=== PATIENT | female | born 1975 | race Caucasian/White ===

== ENCOUNTER 2016-07-04 13:25 | Emergency (ER) | payer OTHER ==
--- NOTE | 2016-07-04 14:29 | DIAGNOSTIC IMAGING REPORT ---
PROCEDURE: XR KNEE 4 VIEWS - LEFT INDICATION: TRAUMA/INJURY TECHNIQUE: Four views of the left knee. COMPARISON: None. FINDINGS: Normal mineralization. No fractures. Moderate decreased joint space loss of the medial compartment with small spurs. Mild spurring in the lateral and patellofemoral compartment. Enthesopathic change of the anterior superior and inferior patella. Possible moderate sized joint effusion. No chondrocalcinosis. No foreign body. IMPRESSION: 1. Moderate sized joint effusion suspected. This may be sign of internal derangement. Routine MRI of the knee if pain continues. 2. Mild to moderate tricompartment osteoarthritic changes, most extensive in the medial compartment.
--- NOTE | 2016-07-04 14:31 | ED CLINICAL REPORT ---
Clinical Report - Physicians/Mid Levels [facility] [address] [place] [address] 07/04/2016 13:27 Patient: DEISY FRIEDMAN Time Seen: 13:47; initial patient contact, initial documentation, patient care assumed. Arrived- By private vehicle. Historian- patient. HISTORY OF PRESENT ILLNESS Chief Complaint: Injury to left knee. The injury happened about 1 weeks ago. Occurred at home. ( walking and moving stuff, and hears sound come from knee and instant pain). Patient is experiencing severe pain. Patient denies injury to the head or neck. No other injury. (says she never had injury to it prior, but has bad knees due to her size). REVIEW OF SYSTEMS The patient has had weakness. No tingling, numbness, suspected foreign body or skin laceration. All systems otherwise negative, except as recorded above. PAST HISTORY See nurses notes. ( PROBLEMS: Elevated Cholesterol. High blood pressure . --13:41 Derek Da Silva, R.N. ADDITIONAL SURGERIES: Bilateral Tubal Ligation. Hysterectomy. --13:41 Derek Da Silva, R.N.). SOCIAL HISTORY Former smoker. Occasional alcohol use. History of occasional drug use: marijuana. No recent travel. Is a local resident. FAMILY HISTORY No significant family medical history. ADDITIONAL NOTES The nursing notes have been reviewed with agreement regarding the chief complaint, HPI, ROS, PMH and patient medications and allergies. PHYSICAL EXAM Vital Signs: 07/04/2016 13:37 BP: 133/85. HR: 81. RR: 18. O2 saturation: 98%. Temp: 98.4 F. Have been reviewed as normal and appear to be correct. Appearance: Alert. Oriented X3. No acute distress. Head: Head atraumatic. Eyes: Pupils equal, round and reactive to light. Eyes normal inspection. Respiratory: No respiratory distress. Abdomen: Severely obese. Skin: Skin intact. Skin warm and dry. Normal skin color. Normal skin turgor. Extremities: Left knee: mild tenderness located in the medial joint line and medial collateral ligament. Limited ROM secondary to pain (diminished flexion). Neurovascular intact distally. (can flex almost 100% of the way before too much pain). No ligamentous laxity present. No joint effusion. No erythema, swelling, laceration, abrasion or ecchymosis. No puncture wound, foreign body or deformity. Lower extremity exam otherwise negative. Extremities otherwise negative. Gait: Abnormal gait. Gait not tested due to pain. Neuro, Vascular and Tendons: Vascular status intact. Sensation intact. Motor intact. Tendon function intact. Neuro: Oriented X 3. No motor deficit. No sensory deficit. Note: isolated injury to knee. LABS, X-RAYS, AND EKG X-Rays: Left knee. The X-rays were interpreted by the radiologist and contemporaneously by me and discussed with the radiologist. Interpretation time: 14:27. PROGRESS AND PROCEDURES Patient counseled in person regarding the patient's stable condition, test results and diagnosis. 14:27. Differential Diagnosis: I considered stress fracture, bone contusion, rheumatoid arthritis, sprain, hyperextension, meniscus tear, anterior cruciate ligament tear, ligament tear, soft tissue injury, soft tissue hematoma, myositis, fasciitis, tendonitis, bursitis and Taylor's cyst as a possible cause of lower extremity pain in this patient. This is a partial list of diagnoses considered. Above considerations are based on history, physical exam, reassessment and X-Ray data. Differential diagnosis was discussed with patient. Disposition: Discharged home in good and improved condition (14:31). Condition: good and stable. CLINICAL IMPRESSION Tear of the left medial meniscus. INSTRUCTIONS Warnings: COMPLICATIONS: Complications from this condition include: possible injury to a ligament (for possible MRI, as discussed). It is important to follow up with a physician for further evaluation and treatment. GENERAL WARNINGS: Return or contact your physician immediately if your condition worsens or changes unexpectedly, if not improving as expected, or if other problems arise. Specifically return if problem worsens. Prescription Medications: [place] 5 mg / 325 mg tablets: take 1 to 2 orally every 6 hours as needed for pain. Dispense fifteen (15). No refills. Substitution is permissible. Motrin 800 mg tablets: take 1 tablet orally every 8 hours as needed for pain. Dispense thirty (30). No refills. Substitution is permissible. Understanding of the discharge instructions verbalized by patient. Follow-up with: [facility], , [address], , [place], [address]; Tristan Joseph M.D., Ortho, , [address], , [place], [address]; Chris Graff M.D., Ortho, , [address], , [place], [address]; Jesus Manuel Alfonso MD, Orthopedic Surgeon, , [address], , [place], [address]; Norberto Peter MD, Orthopedic Surgeon, , [address] , [place], [address] Follow up in about one week as needed. Call for an appointment. Summary of care provided to patient. (Electronically signed by Celi Enrique A.R.N.P. 07/04/2016 16:01)
--- NOTE | 2016-07-04 14:31 | ED ORDER SUMMARY ---
..... Patient: DEISY FRIEDMAN OrderSheet [facility] VisitID: [id number] [place] [address] 40y, F Registration Date/Time: 07/04/2016 ORDER SHEET Weight: 177.8 kg (stated) Allergies: No Known Drug Allergy GENERAL ORDERS: Knee 4V Left Urgent (13:53 07/04/2016 HBivens A.R.N.P.) (Ack 13:54 MSyann) (14:38 JSanders R.N.) Abhinav Wrap (14:28 07/04/2016 HBivens A.R.N.P.) (14:46 JSanders R.N.) MEDICATION ORDERS: Hydrocodone-APAP PO 5/325 mg (NOW, HIGH ALERT MEDICATION) (14:27 07/04/2016 HBivens A.R.N.P.) (14:38 JSanders R.N.) IV FLUIDS: ORDER SHEET NOTES: [Electronically signed by Jessy Duarte R.N. (15:34 07/04/2016)] [Electronically signed by Celi EnriqueR.N.P. (16:01 07/04/2016)] [Electronically locked/signed by Jessy Duarte R.N. (15:34 07/04/2016)]
--- NOTE | 2016-07-04 14:31 | ED CLINICAL REPORT ---
Clinical Report - Physicians/Mid Levels [facility] [address] [place] [address] 07/04/2016 13:27 Patient: DEISY FRIEDMAN Time Seen: 13:47; initial patient contact, initial documentation, patient care assumed. Arrived- By private vehicle. Historian- patient. HISTORY OF PRESENT ILLNESS Chief Complaint: Injury to left knee. The injury happened about 1 weeks ago. Occurred at home. ( walking and moving stuff, and hears sound come from knee and instant pain). Patient is experiencing severe pain. Patient denies injury to the head or neck. No other injury. (says she never had injury to it prior, but has bad knees due to her size). REVIEW OF SYSTEMS The patient has had weakness. No tingling, numbness, suspected foreign body or skin laceration. All systems otherwise negative, except as recorded above. PAST HISTORY See nurses notes. ( PROBLEMS: Elevated Cholesterol. High blood pressure . --13:41 Derek Da Silva, R.N. ADDITIONAL SURGERIES: Bilateral Tubal Ligation. Hysterectomy. --13:41 Derek Da Silva, R.N.). SOCIAL HISTORY Former smoker. Occasional alcohol use. History of occasional drug use: marijuana. No recent travel. Is a local resident. FAMILY HISTORY No significant family medical history. ADDITIONAL NOTES The nursing notes have been reviewed with agreement regarding the chief complaint, HPI, ROS, PMH and patient medications and allergies. PHYSICAL EXAM Vital Signs: 07/04/2016 13:37 BP: 133/85. HR: 81. RR: 18. O2 saturation: 98%. Temp: 98.4 F. Have been reviewed as normal and appear to be correct. Appearance: Alert. Oriented X3. No acute distress. Head: Head atraumatic. Eyes: Pupils equal, round and reactive to light. Eyes normal inspection. Respiratory: No respiratory distress. Abdomen: Severely obese. Skin: Skin intact. Skin warm and dry. Normal skin color. Normal skin turgor. Extremities: Left knee: mild tenderness located in the medial joint line and medial collateral ligament. Limited ROM secondary to pain (diminished flexion). Neurovascular intact distally. (can flex almost 100% of the way before too much pain). No ligamentous laxity present. No joint effusion. No erythema, swelling, laceration, abrasion or ecchymosis. No puncture wound, foreign body or deformity. Lower extremity exam otherwise negative. Extremities otherwise negative. Gait: Abnormal gait. Gait not tested due to pain. Neuro, Vascular and Tendons: Vascular status intact. Sensation intact. Motor intact. Tendon function intact. Neuro: Oriented X 3. No motor deficit. No sensory deficit. Note: isolated injury to knee. LABS, X-RAYS, AND EKG X-Rays: Left knee. The X-rays were interpreted by the radiologist and contemporaneously by me and discussed with the radiologist. Interpretation time: 14:27. PROGRESS AND PROCEDURES Patient counseled in person regarding the patient's stable condition, test results and diagnosis. 14:27. Differential Diagnosis: I considered stress fracture, bone contusion, rheumatoid arthritis, sprain, hyperextension, meniscus tear, anterior cruciate ligament tear, ligament tear, soft tissue injury, soft tissue hematoma, myositis, fasciitis, tendonitis, bursitis and Taylor's cyst as a possible cause of lower extremity pain in this patient. This is a partial list of diagnoses considered. Above considerations are based on history, physical exam, reassessment and X-Ray data. Differential diagnosis was discussed with patient. Disposition: Discharged home in good and improved condition (14:31). Condition: good and stable. CLINICAL IMPRESSION Tear of the left medial meniscus. INSTRUCTIONS Warnings: COMPLICATIONS: Complications from this condition include: possible injury to a ligament (for possible MRI, as discussed). It is important to follow up with a physician for further evaluation and treatment. GENERAL WARNINGS: Return or contact your physician immediately if your condition worsens or changes unexpectedly, if not improving as expected, or if other problems arise. Specifically return if problem worsens. Prescription Medications: [place] 5 mg / 325 mg tablets: take 1 to 2 orally every 6 hours as needed for pain. Dispense fifteen (15). No refills. Substitution is permissible. Motrin 800 mg tablets: take 1 tablet orally every 8 hours as needed for pain. Dispense thirty (30). No refills. Substitution is permissible. Understanding of the discharge instructions verbalized by patient. Follow-up with: [facility], , [address], , [place], [address]; Tristan Joseph M.D., Ortho, , [address], , [place], [address]; Chris Graff M.D., Ortho, , [address], , [place], [address]; Jesus Manuel Alfonso MD, Orthopedic Surgeon, , [address], , [place], [address]; Norberto Peter MD, Orthopedic Surgeon, , [address] , [place], [address] Follow up in about one week as needed. Call for an appointment. Summary of care provided to patient. (Electronically signed by Celi Enrique A.R.N.P. 07/04/2016 16:01)
--- NOTE | 2016-07-04 14:31 | ED NURSING NOTES ---
Clinical Report - Nurses [facility] [address] [place] [address] 07/04/2016 13:27 [id number] TRI[facility] Triage time 13:37 Jul 04 2016. Acuity: LEVEL 3. Chief Complaint: INJURY TO LEFT KNEE. STALIN COMA SCORE: Stalin Coma Scale: 15- eyes open spontaneously (4); best verbal response- oriented x 4 (5); best motor response- obeys commands (6). --13:42 Derek Da Silva R.N. 13:37 07/04/16. BP: 133/85. HR: 81. RR: 18. O2 saturation: 98%. Temp: 98.4 F. Pain level now 10/10. --13:42 Derek Da Silva R.N. Weight: 177.8 kg stated. Height/Length: 70 inches Per Patient. BMI: 56.2. --13:41 Derek Da Silva R.N. Medications Ibuprofen Oral. --13:39 Derek Da Silva R.N. Sertraline HCl Oral. --13:39 Derek Da Silva R.N. Lisinopril Oral. --13:39 Derek Da Silva R.N. Atenolol Oral. --13:39 Derek Da Silva R.N. Diclofenac Oral. --13:40 Derek Da Silva R.N. Allergies No Known Drug Allergy. --13:40 Derek Da Silva R.N. History Arrived by private vehicle. Historian: patient. Accompanied by family. This occurred (thursday). Occurred at home. ( Patient was moving on thursday and was up the stairs heard a sound a tear or pop but has been in severe pain since.). She has had trouble walking and weakness. No numbness, tingling, neck pain or back pain. 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 Took ibuprofen. PAST MEDICAL HX: Hypertension. Tetanus status: up-to-date. Immunizations: up-to-date. Denies current . SOCIAL HX: Smoker- current status unknown. Occasional alcohol use. History of drug use: marijuana. --13:42 Derek Da Silva R.N. PROBLEMS: Elevated Cholesterol. High blood pressure . --13:41 Derek Da Silva R.N. ADDITIONAL SURGERIES: Bilateral Tubal Ligation. Hysterectomy. --13:41 Derek Da Silva R.N. Interventions ID band on patient. --13:42 Derek Da Silva R.N. PHYSICAL ASSESSMENT Ambulatory to room. GENERAL / NEURO / PSYCH: Oriented X 4. Appears in pain. EXTREMITIES: Capillary refill is less than 2 seconds in the extremities. Extremity pulses are within normal limits. Extremities exhibit normal ROM. Pain with weight bearing. Neuro-vascular status intact to the extremity. Left knee: tenderness. SKIN: Skin intact. Skin is warm and dry. --13:43 Derek Da Silva R.N. NURSING PROGRESS NOTES Cold pack applied to the left patella. Patient gowned. Reassurance given. Call light placed in reach. Side rails up x 1. Bed placed in lowest position. Brakes of bed on. --13:43 Derek Da Silva R.N. 14:38 07/04/2016 Hydrocodone-APAP (Hydrocodone-Acetaminophen) PO 5/325 mg Tablets 1 tab given. Allergies verified, confirmed 5 rights and sedative warning given to the patient. --14:38 Jessy Duarte R.N. DISPOSITION / DISCHARGE 15:26 07/04/2016 Hydrocodone-APAP PO Response: no adverse reaction pain is improving. Symptoms have improved the patient feels better. --15:26 Jessy Duarte R.N. Condition at departure: improved. No learning barriers present. Discharge instructions provided and reviewed with the patient. Reviewed medication(s) side effects, precautions and dosing information. Prescription(s) given to the patient. Reviewed instructions (sowmya wrap). Patient verbalized understanding. Written instructions provided in Georgian. The patient was discharged by the nurse practitioner. She was discharged home and accompanied by family. She left the Emergency Department in a wheelchair and via private vehicle. Family member driving. ( Patient has no further questions). --15:28 Jessy Duarte R.N. 15:23 07/04/16. BP: 139/95. HR: 86. RR: 18. O2 saturation: 94% on room air. Temp: 97.7 F (oral). Pain level now: 10/06. --15:28 Jessy Duarte R.N. Departure time: 15:33 Jul 04 2016. --15:33 Jessy Duarte R.N. Locked/Released at 07/04/2016 15:34 by Jessy Duarte R.N.
--- NOTE | 2016-07-04 14:31 | ED ORDER SUMMARY ---
..... Patient: DEISY FRIEDMAN OrderSheet [facility] VisitID: [id number] [place] [address] 40y, F Registration Date/Time: 07/04/2016 ORDER SHEET Weight: 177.8 kg (stated) Allergies: No Known Drug Allergy GENERAL ORDERS: Knee 4V Left Urgent (13:53 07/04/2016 HBivens A.R.N.P.) (Ack 13:54 NDyann) (14:38 JSanders R.N.) Abhinav Wrap (14:28 07/04/2016 HBivens A.R.N.P.) (14:46 JSanders R.N.) MEDICATION ORDERS: Hydrocodone-APAP PO 5/325 mg (NOW, HIGH ALERT MEDICATION) (14:27 07/04/2016 HBivens A.R.N.P.) (14:38 JSanders R.N.) IV FLUIDS: ORDER SHEET NOTES: [Electronically signed by Jessy Duarte R.N. (15:34 07/04/2016)] [Electronically signed by Celi EnriqueR.N.P. (16:01 07/04/2016)] [Electronically locked/signed by Jessy Duarte R.N. (15:34 07/04/2016)]
--- NOTE | 2016-07-04 14:31 | ED NURSING NOTES ---
Clinical Report - Nurses [facility] [address] [place] [address] 07/04/2016 13:27 [id number] TRI[facility] Triage time 13:37 Jul 04 2016. Acuity: LEVEL 3. Chief Complaint: INJURY TO LEFT KNEE. STALIN COMA SCORE: Stalin Coma Scale: 15- eyes open spontaneously (4); best verbal response- oriented x 4 (5); best motor response- obeys commands (6). --13:42 Derek Da Silva R.N. 13:37 07/04/16. BP: 133/85. HR: 81. RR: 18. O2 saturation: 98%. Temp: 98.4 F. Pain level now 10/10. --13:42 Derek Da Silva R.N. Weight: 177.8 kg stated. Height/Length: 70 inches Per Patient. BMI: 56.2. --13:41 Derek Da Silva R.N. Medications Ibuprofen Oral. --13:39 Derek Da Silva R.N. Sertraline HCl Oral. --13:39 Derek Da Silva R.N. Lisinopril Oral. --13:39 Derek Da Silva R.N. Atenolol Oral. --13:39 Derek Da Silva R.N. Diclofenac Oral. --13:40 Derek Da Silva R.N. Allergies No Known Drug Allergy. --13:40 Derek Da Silva R.N. History Arrived by private vehicle. Historian: patient. Accompanied by family. This occurred (thursday). Occurred at home. ( Patient was moving on thursday and was up the stairs heard a sound a tear or pop but has been in severe pain since.). She has had trouble walking and weakness. No numbness, tingling, neck pain or back pain. 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 Took ibuprofen. PAST MEDICAL HX: Hypertension. Tetanus status: up-to-date. Immunizations: up-to-date. Denies current . SOCIAL HX: Smoker- current status unknown. Occasional alcohol use. History of drug use: marijuana. --13:42 Derek Da Silva R.N. PROBLEMS: Elevated Cholesterol. High blood pressure . --13:41 Derek Da Silva R.N. ADDITIONAL SURGERIES: Bilateral Tubal Ligation. Hysterectomy. --13:41 Derek Da Silva R.N. Interventions ID band on patient. --13:42 Derek Da Silva R.N. PHYSICAL ASSESSMENT Ambulatory to room. GENERAL / NEURO / PSYCH: Oriented X 4. Appears in pain. EXTREMITIES: Capillary refill is less than 2 seconds in the extremities. Extremity pulses are within normal limits. Extremities exhibit normal ROM. Pain with weight bearing. Neuro-vascular status intact to the extremity. Left knee: tenderness. SKIN: Skin intact. Skin is warm and dry. --13:43 Derek Da Silva R.N. NURSING PROGRESS NOTES Cold pack applied to the left patella. Patient gowned. Reassurance given. Call light placed in reach. Side rails up x 1. Bed placed in lowest position. Brakes of bed on. --13:43 Derek Da Silva R.N. 14:38 07/04/2016 Hydrocodone-APAP (Hydrocodone-Acetaminophen) PO 5/325 mg Tablets 1 tab given. Allergies verified, confirmed 5 rights and sedative warning given to the patient. --14:38 Jessy Duarte R.N. DISPOSITION / DISCHARGE 15:26 07/04/2016 Hydrocodone-APAP PO Response: no adverse reaction pain is improving. Symptoms have improved the patient feels better. --15:26 Jessy Duarte R.N. Condition at departure: improved. No learning barriers present. Discharge instructions provided and reviewed with the patient. Reviewed medication(s) side effects, precautions and dosing information. Prescription(s) given to the patient. Reviewed instructions (sowmya wrap). Patient verbalized understanding. Written instructions provided in Turkmen. The patient was discharged by the nurse practitioner. She was discharged home and accompanied by family. She left the Emergency Department in a wheelchair and via private vehicle. Family member driving. ( Patient has no further questions). --15:28 Jessy Duarte R.N. 15:23 07/04/16. BP: 139/95. HR: 86. RR: 18. O2 saturation: 94% on room air. Temp: 97.7 F (oral). Pain level now: 10/06. --15:28 Jessy Duarte R.N. Departure time: 15:33 Jul 04 2016. --15:33 Jessy Duarte R.N. Locked/Released at 07/04/2016 15:34 by Jessy Duarte R.N.
--- NOTE | 2016-07-04 16:02 | ED MAR SUMMARY ---
..... Medication Administration Record [facility] [address] [place] [address] Patient: DEISY FRIEDMAN Visit ID: [id number] 40y, F Weight: 177.8 kg Height/Length: 70 in BMI: 56.2 ALLERGIES: No Known Drug Allergy Given 14:38 07/04/2016 Jessy Duarte R.N. Medication Administered: HYDROCODONE-APAP [PO] (HYDROCODONE-ACETAMINOPHEN), Dose: 1 tab 5/325 mg Tablets PO. Medication Ordered: Hydrocodone-APAP PO 5/325 mg (NOW, HIGH ALERT MEDICATION).
--- NOTE | 2016-07-04 16:02 | ED MED RECONCILIATION SUMMARY ---
Patient: DEISY FRIEDMAN Medication Reconciliation Report [facility] VisitID: [id number] [place] [address] 40y, F Registration Date/Time: 07/04/2016 Weight: 177.8 kg Height/Length: 70 in. BMI: 56.2 ALLERGIES: No Known Drug Allergy The patient's Home Medications are listed below: THE FOLLOWING MEDICATIONS NEED TO BE RECONCILED: Atenolol Oral Diclofenac Oral Ibuprofen Oral Lisinopril Oral Sertraline HCl Oral The source(s) of the original Home Medication information: Not obtained. The following Medications were given to the patient in the Emergency Department: Hydrocodone-APAP [PO] PO 1 tab, administered: 07/04/2016 2:38:00 PM The following Medications were prescribed to the patient: [place] 5 mg / 325 mg tablets: take 1 to 2 orally every 6 hours as needed for pain. Dispense fifteen (15). No refills. Substitution is permissible. -- Celi Enrique A.R.N.P. Motrin 800 mg tablets: take 1 tablet orally every 8 hours as needed for pain. Dispense thirty (30). No refills. Substitution is permissible. -- Celi Enrique A.R.N.P.
--- NOTE | 2016-07-04 16:02 | ED MED RECONCILIATION SUMMARY ---
Patient: DEISY FRIEDMAN Medication Reconciliation Report [facility] VisitID: [id number] [place] [address] 40y, F Registration Date/Time: 07/04/2016 Weight: 177.8 kg Height/Length: 70 in. BMI: 56.2 ALLERGIES: No Known Drug Allergy The patient's Home Medications are listed below: THE FOLLOWING MEDICATIONS NEED TO BE RECONCILED: Atenolol Oral Diclofenac Oral Ibuprofen Oral Lisinopril Oral Sertraline HCl Oral The source(s) of the original Home Medication information: Not obtained. The following Medications were given to the patient in the Emergency Department: Hydrocodone-APAP [PO] PO 1 tab, administered: 07/04/2016 2:38:00 PM The following Medications were prescribed to the patient: [place] 5 mg / 325 mg tablets: take 1 to 2 orally every 6 hours as needed for pain. Dispense fifteen (15). No refills. Substitution is permissible. -- Celi Enrique A.R.N.P. Motrin 800 mg tablets: take 1 tablet orally every 8 hours as needed for pain. Dispense thirty (30). No refills. Substitution is permissible. -- Celi Enrique A.R.N.P.
--- NOTE | 2016-07-04 16:02 | ED MAR SUMMARY ---
..... Medication Administration Record [facility] [address] [place] [address] Patient: DEISY FRIEDMAN Visit ID: [id number] 40y, F Weight: 177.8 kg Height/Length: 70 in BMI: 56.2 ALLERGIES: No Known Drug Allergy Given 14:38 07/04/2016 Jessy Duarte R.N. Medication Administered: HYDROCODONE-APAP [PO] (HYDROCODONE-ACETAMINOPHEN), Dose: 1 tab 5/325 mg Tablets PO. Medication Ordered: Hydrocodone-APAP PO 5/325 mg (NOW, HIGH ALERT MEDICATION).
--- NOTE | 2016-07-04 16:02 | ED DISCHARGE INSTRUCTIONS ---
Patient: DEISY FRIEDMAN General Instructions [facility] VisitID: [id number] [address], [place], [place] [id number] 40y, F Registration Date/Time: 07/04/2016 Tear of the left medial meniscus. INSTRUCTIONS Warnings: COMPLICATIONS: Complications from this condition include: possible injury to a ligament (for possible MRI, as discussed). It is important to follow up with a physician for further evaluation and treatment. GENERAL WARNINGS: Return or contact your physician immediately if your condition worsens or changes unexpectedly, if not improving as expected, or if other problems arise. Specifically return if problem worsens. Prescription Medications: Sigourney 5 mg / 325 mg tablets: take 1 to 2 orally every 6 hours as needed for pain. Dispense fifteen (15). No refills. Substitution is permissible. Motrin 800 mg tablets: take 1 tablet orally every 8 hours as needed for pain. Dispense thirty (30). No refills. Substitution is permissible. Understanding of the discharge instructions verbalized by patient. Follow-up with: [facility], Ortho, , [address], , [place] [id number]; Tristan Joseph M.D., Ortho, , [address], , [facility] [address]; Chris Graff M.D., Ortho, , [address], , [facility] [id number]; Jesus Manuel Alfonso MD, Orthopedic Surgeon, , [address], , [place], [address]; Norberto Peter MD, Orthopedic Surgeon, , [address] , [place] [id number] Follow up in about one week as needed. Call for an appointment. Summary of care provided to patient. ADDITIONAL INFORMATION Knee Pain, Possible Torn Meniscus Themeniscusis a tough cartilage pad that cushions the inside of the knee joint. It serves as a shock absorber and spreads the weight of your body evenly across the knee joint. This prevents excess wear and tear to the bones of that joint. The most common causes of meniscal tears are due to injury (especially related to sports) and degenerative disease (as occurs with aging). A meniscus tear commonly occurs during a twisting injury when the knee is bent. This causes pain, swelling, reduced movement of the knee and difficulty walking. There may be popping, clicking, joint locking or inability to completely straighten the knee. Ligaments of the knee may also be injured. Initial diagnosis of a torn meniscus is by physical exam and x-rays. In the case of an acute injury, the knee may be too painful to examine fully. A more accurate exam can be performed after the initial swelling goes down. An MRI (magnetic image scan) may be ordered to make a final diagnosis. Initial treatment of a suspected meniscal injury is with ice and rest and preventing movement of the knee. A splint or Velcro knee immobilizer may be applied to protect the joint. Depending on the severity of the injury, surgery may be required. A cartilage injury may take 4-12 weeks to heal depending on the severity. Home Care: Stay off the injured leg as much as possible until you can walk on it without pain. If you have a lot of pain with walking, crutches or a walker may be prescribed. (These can be rented or purchased at many pharmacies and surgical or orthopedic supply stores). Follow your doctor's advice regarding when to begin bearing weight on that leg. Keep your leg elevated to reduce pain and swelling. When sleeping, place a pillow under the injured leg. When sitting, support the injured leg so it is level with your waist. This is very important during the first 48 hours. Apply an ice pack (ice cubes in a plastic bag, wrapped in a towel) over the injured area for 20 minutes every 1-2 hours the first day. You can place the ice pack directly over the splint. If a Velcro knee immobilizer was applied, you can open this to apply the ice pack directly to the knee. Continue with ice packs 3-4 times a day for the next two days, then as needed for the relief of pain and swelling. You may use acetaminophen (Tylenol) or ibuprofen (Motrin, Advil) to control pain, unless another pain medicine was prescribed. [NOTE: If you have chronic liver or kidney disease or ever had a stomach ulcer, talk with your doctor before using these medicines.] If you were given a splint, keep it completely dry at all times. Bathe with your splint out of the water, protected with a large plastic bag, rubber-banded at the top end. If a fiberglass splint gets wet, you can dry it with a hair-dryer. If you have a Velcro knee immobilizer, you can remove this to bathe, unless told otherwise. Check with your doctor before returning to sports or full work duties. Follow Up with your doctor, or as advised, within 1-2 weeks for another exam. Further testing may be required to assess the extent of your injury. [NOTE: If X-rays were taken, they will be reviewed by a radiologist. You will be notified of any new findings that may affect your care.] Get Prompt Medical Attention if any of the following occur: Toes or foot becomes swollen, cold, blue, numb or tingly Pain or swelling increases over the knee or calf Warmth or redness appears over the knee or calf Shortness of breath or chest pain Fever over 100.4F (38.0C) Knee Effusion A knee effusion is sometimes calledwater on the knee. The knee joint normally contains less than one ounce of lubricating fluid. Injury or inflammation of the knee joint causes extra fluid to collect there. When this occurs, the knee joint looks swollen and is usually painful. There may be difficulty in fully bending the knee. The most common cause of knee effusion is osteoarthritis due to wear and tear on the joint cartilage. Other causes include injury to the cartilage, inflammatory arthritis (such as gout or rheumatoid arthritis), and infection of the joint. If the cause of your knee effusion is not certain, a needle aspiration may be performed. This procedure removes a sample of joint fluid from the knee for testing. This is done with a local anesthetic. Removing excess fluid may also relieve swelling and pain. Home Care: Limit your activities. Avoid weight-bearing activities as much as possible when your knee is painful and swollen. Keep your leg elevated to reduce pain and swelling. When sleeping, place a pillow under the injured leg. When sitting, support the injured leg so it is level with your waist. This is very important during the first 48 hours. Apply an ice pack (ice cubes in a plastic bag, wrapped in a towel) over the injured area for 20 minutes every 1-2 hours the first day. Continue with ice packs 3-4 times a day for the next two days, then as needed for the relief of pain and swelling. You may use acetaminophen (Tylenol) or ibuprofen (Motrin, Advil) to control pain, unless another pain medicine was prescribed. [NOTE: If you have chronic liver or kidney disease or have ever had a stomach ulcer, talk with your doctor before using these medicines.] Ifcrutches or a walker have been recommended, do not bear full weight on the injured leg until you can do so without pain. Check with your doctor before returning to sports or full work duties. If you were given a Velcro knee brace: You may open the splint to apply ice. You may remove the splint to bathe and sleep, unless told otherwise. Follow Up with your doctor or as advised by our staff. If you are overweight, talk to your doctor about a weight loss program. The excess weight puts extra strain on your knees. Return Promptly or contact your doctor if any of the following occur: Increasing pain, redness or swelling of the knee Fever of 100.4F (38C) or higher, or as directed by your healthcare provider Sprain, Knee A sprain is an injury to the ligaments or capsule that holds a joint together. There are no broken bones. Most sprains take three to six weeks to heal. If the ligament is completely torn (severe sprain), it can take months to recover from. Most knee sprains are treated with a splint, knee immobilizer or elastic wrap for support. Severe sprains may require surgery. Home care The following guidelines will help you care for your injury at home: Stay off the injured leg as much as possible until you can walk on it without pain. If you have a lot of pain with walking, crutches or a walker may be prescribed. (These can be rented or purchased at many pharmacies and surgical or orthopedic supply stores). Follow your doctor's advice regarding when to begin bearing weight on that leg. Keep your leg elevated to reduce pain and swelling. When sleeping, place a pillow under the injured leg. When sitting, support the injured leg so it is level with your waist. This is very important during the first 48 hours. Apply an ice pack (ice cubes in a plastic bag, wrapped in a towel) over the injured area for 20 minutes every 12 hours the first day. You can place the ice pack directly over the splint. If a Velcro knee immobilizer was applied, you can open this to apply the ice pack directly to the knee. Continue with ice packs 34 times a day for the next two days, then as needed for the relief of pain and swelling. You may use acetaminophen or ibuprofen to control pain, unless another pain medicine was prescribed. If you have chronic liver or kidney disease or ever had a stomach ulcer or GI bleeding, talk with your doctor before using these medicines. If you were given a splint, keep it completely dry at all times. Bathe with your splint out of the water, protected with a large plastic bag, rubber-banded at the top end. If a fiberglass splint gets wet, you can dry it with a hair-dryer. If you have a Velcro knee immobilizer, you can remove this to bathe, unless told otherwise. Follow-up care Follow up with your doctor as advised. Any X-rays you had today dont show any broken bones, breaks, or fractures. Sometimes fractures dont show up on the first X-ray. Bruises and sprains can sometimes hurt as much as a fracture. These injuries can take time to heal completely. If your symptoms dont improve or they get worse, talk with your doctor. You may need a repeat X-ray. When to seek medical care Get prompt medical attention if any of the following occur: The plaster cast or splint becomes wet or soft The fiberglass cast or splint remains wet for more than 24 hours Pain or swelling increases Toes become cold, blue, numb or tingly Hydrocodone Bitartrate, Acetaminophen Oral tablet What is this medicine? ACETAMINOPHEN; HYDROCODONE (a set a SHERWIN michael fen; rakan droe KOE done) is a pain reliever. It is used to treat mild to moderate pain. How should I use this medicine? Take this medicine by mouth. Swallow it with a full glass of water. Follow the directions on the prescription label. If the medicine upsets your stomach, take the medicine with food or milk. Do not take more than you are told to take. Talk to your hem marker regarding the use of this medicine in children. This medicine is not approved for use in children. What side effects may I notice from receiving this medicine? Side effects that you should report to your doctor or health health care law specialist as soon as possible: allergic reactions like skin rash, itching or hives, swelling of the face, lips, or tongue breathing problems confusion feeling faint or lightheaded, falls stomach pain yellowing of the eyes or skin Side effects that usually do not require medical attention (report to your doctor or health health care law specialist if they continue or are bothersome): nausea, vomiting stomach upset What may interact with this medicine? alcohol antihistamines isoniazid medicines for depression, anxiety, or psychotic disturbances medicines for sleep muscle relaxants naltrexone narcotic medicines (opiates) for pain phenobarbital ritonavir tramadol What if I miss a dose? If you miss a dose, take it as soon as you can. If it is almost time for your next dose, take only that dose. Do not take double or extra doses. Where should I keep my medicine? Keep out of the reach of children. This medicine can be abused. Keep your medicine in a safe place to protect it from theft. Do not share this medicine with anyone. Selling or giving away this medicine is dangerous and against the law. Store at room temperature between 15 and 30 degrees C (59 and 86 degrees F). Protect from light. Keep container tightly closed. Throw away any unused medicine after the expiration date. Discard unused medicine and used packaging carefully. Pets and children can be harmed if they find used or lost packages. What should I tell my health care provider before I take this medicine? They need to know if you have any of these conditions: brain tumor Crohn's disease, inflammatory bowel disease, or ulcerative colitis drink more than 3 alcohol-containing drinks per day drug abuse or addiction head injury heart or circulation problems kidney disease or problems going to the bathroom liver disease lung disease, asthma, or breathing problems an unusual or allergic reaction to acetaminophen, hydrocodone, other opioid analgesics, other medicines, foods, dyes, or preservatives or trying to get breast-feeding What should I watch for while using this medicine? Tell your doctor or health health care law specialist if your pain does not go away, if it gets worse, or if you have new or a different type of pain. You may develop tolerance to the medicine. Tolerance means that you will need a higher dose of the medicine for pain relief. Tolerance is normal and is expected if you take the medicine for a long time. Do not suddenly stop taking your medicine because you may develop a severe reaction. Your body becomes used to the medicine. This does NOT mean you are addicted. Addiction is a behavior related to getting and using a drug for a non-medical reason. If you have pain, you have a medical reason to take pain medicine. Your doctor will tell you how much medicine to take. If your doctor wants you to stop the medicine, the dose will be slowly lowered over time to avoid any side effects. You may get drowsy or dizzy when you first start taking the medicine or change doses. Do not drive, use machinery, or do anything that may be dangerous until you know how the medicine affects you. Stand or sit up slowly. There are different types of narcotic medicines (opiates) for pain. If you take more than one type at the same time, you may have more side effects. Give your health care provider a list of all medicines you use. Your doctor will tell you how much medicine to take. Do not take more medicine than directed. Call emergency for help if you have problems breathing. The medicine will cause constipation. Try to have a bowel movement at least every 2 to 3 days. If you do not have a bowel movement for 3 days, call your doctor or health health care law specialist. Too much acetaminophen can be very dangerous. Do not take Tylenol (acetaminophen) or medicines that contain acetaminophen with this medicine. Many non-prescription medicines contain acetaminophen. Always read the labels carefully. Ibuprofen Oral tablet What is this medicine? IBUPROFEN (eye BYOO proe fen) is a non-steroidal anti-inflammatory drug (NSAID). It is used for dental pain, fever, headaches or migraines, osteoarthritis, rheumatoid arthritis, or painful monthly periods. It can also relieve minor aches and pains caused by a cold, flu, or sore throat. How should I use this medicine? Take this medicine by mouth with a glass of water. Follow the directions on the prescription label. Take this medicine with food if your stomach gets upset. Try to not lie down for at least 10 minutes after you take the medicine. Take your medicine at regular intervals. Do not take your medicine more often than directed. A special MedGuide will be given to you by the pharmacist with each prescription and refill. Be sure to read this information carefully each time. Talk to your hem marker regarding the use of this medicine in children. Special care may be needed. What side effects may I notice from receiving this medicine? Side effects that you should report to your doctor or health health care law specialist as soon as possible: allergic reactions like skin rash, itching or hives, swelling of the face, lips, or tongue black or bloody stools, blood in the urine or in vomit breathing problems changes in vision chest pain general ill feeling or flu-like symptoms nausea or vomiting redness, blistering, peeling or loosening of the skin, including inside the mouth slurred speech or weakness on one side of the body stomach pain unexplained weight gain or swelling unusually weak or tired yellowing of eyes or skin Side effects that usually do not require medical attention (report to your doctor or health health care law specialist if they continue or are bothersome): constipation or diarrhea dizziness gas or heartburn stomach upset What may interact with this medicine? Do not take this medicine with any of the following medications: cidofovir ketorolac methotrexate pemetrexed This medicine may also interact with the following medications: alcohol aspirin diuretics lithium other drugs for inflammation like prednisone warfarin What if I miss a dose? If you miss a dose, take it as soon as you can. If it is almost time for your next dose, take only that dose. Do not take double or extra doses. Where should I keep my medicine? Keep out of the reach of children. Store at room temperature between 15 and 30 degrees C (59 and 86 degrees F). Keep container tightly closed. Throw away any unused medicine after the expiration date. What should I tell my health care provider before I take this medicine? They need to know if you have any of these conditions: asthma cigarette smoker drink more than 3 alcohol containing drinks a day heart disease or circulation problems such as heart failure or leg edema (fluid retention) high blood pressure kidney disease liver disease stomach bleeding or ulcers an unusual or allergic reaction to ibuprofen, aspirin, other NSAIDS, other medicines, foods, dyes, or preservatives or trying to get breast-feeding What should I watch for while using this medicine? Tell your doctor or healthcare professional if your symptoms do not start to get better or if they get worse. This medicine does not prevent heart attack or stroke. In fact, this medicine may increase the chance of a heart attack or stroke. The chance may increase with longer use of this medicine and in people who have heart disease. If you take aspirin to prevent heart attack or stroke, talk with your doctor or health health care law specialist. Do not take other medicines that contain aspirin, ibuprofen, or naproxen with this medicine. Side effects such as stomach upset, nausea, or ulcers may be more likely to occur. Many medicines available without a prescription should not be taken with this medicine. This medicine can cause ulcers and bleeding in the stomach and intestines at any time during treatment. Ulcers and bleeding can happen without warning symptoms and can cause . To reduce your risk, do not smoke cigarettes or drink alcohol while you are taking this medicine. You may get drowsy or dizzy. Do not drive, use machinery, or do anything that needs mental alertness until you know how this medicine affects you. Do not stand or sit up quickly, especially if you are an older patient. This reduces the risk of dizzy or fainting spells. This medicine can cause you to bleed more easily. Try to avoid damage to your teeth and gums when you brush or floss your teeth. You have been given the following additional information: Knee Pain, Meniscus Injury (Possible) Knee Effusion Knee Sprain Hydrocodone Bitartrate, Acetaminophen Oral tablet Ibuprofen Oral tablet (Electronically signed by Celi Enrique A.R.N.P. 07/04/2016 16:01)
--- NOTE | 2016-07-04 16:02 | ED DISCHARGE INSTRUCTIONS ---
Patient: DEISY FRIEDMAN General Instructions [facility] VisitID: [id number] [address], [place], [place] [id number] 40y, F Registration Date/Time: 07/04/2016 Tear of the left medial meniscus. INSTRUCTIONS Warnings: COMPLICATIONS: Complications from this condition include: possible injury to a ligament (for possible MRI, as discussed). It is important to follow up with a physician for further evaluation and treatment. GENERAL WARNINGS: Return or contact your physician immediately if your condition worsens or changes unexpectedly, if not improving as expected, or if other problems arise. Specifically return if problem worsens. Prescription Medications: Alamo 5 mg / 325 mg tablets: take 1 to 2 orally every 6 hours as needed for pain. Dispense fifteen (15). No refills. Substitution is permissible. Motrin 800 mg tablets: take 1 tablet orally every 8 hours as needed for pain. Dispense thirty (30). No refills. Substitution is permissible. Understanding of the discharge instructions verbalized by patient. Follow-up with: [facility]o, , [address], , [place] [id number]; Tristan Joseph M.D., Ortho, , [address], , [facility] [id number]; Chris Graff M.D., Ortho, , [address], , [facility] [address]; Jesus Manuel Alfonso MD, Orthopedic Surgeon, , [address], , [place], [id number]; Norberto Peter MD, Orthopedic Surgeon, , [address] , [place] [phone] Follow up in about one week as needed. Call for an appointment. Summary of care provided to patient. ADDITIONAL INFORMATION Knee Pain, Possible Torn Meniscus Themeniscusis a tough cartilage pad that cushions the inside of the knee joint. It serves as a shock absorber and spreads the weight of your body evenly across the knee joint. This prevents excess wear and tear to the bones of that joint. The most common causes of meniscal tears are due to injury (especially related to sports) and degenerative disease (as occurs with aging). A meniscus tear commonly occurs during a twisting injury when the knee is bent. This causes pain, swelling, reduced movement of the knee and difficulty walking. There may be popping, clicking, joint locking or inability to completely straighten the knee. Ligaments of the knee may also be injured. Initial diagnosis of a torn meniscus is by physical exam and x-rays. In the case of an acute injury, the knee may be too painful to examine fully. A more accurate exam can be performed after the initial swelling goes down. An MRI (magnetic image scan) may be ordered to make a final diagnosis. Initial treatment of a suspected meniscal injury is with ice and rest and preventing movement of the knee. A splint or Velcro knee immobilizer may be applied to protect the joint. Depending on the severity of the injury, surgery may be required. A cartilage injury may take 4-12 weeks to heal depending on the severity. Home Care: Stay off the injured leg as much as possible until you can walk on it without pain. If you have a lot of pain with walking, crutches or a walker may be prescribed. (These can be rented or purchased at many pharmacies and surgical or orthopedic supply stores). Follow your doctor's advice regarding when to begin bearing weight on that leg. Keep your leg elevated to reduce pain and swelling. When sleeping, place a pillow under the injured leg. When sitting, support the injured leg so it is level with your waist. This is very important during the first 48 hours. Apply an ice pack (ice cubes in a plastic bag, wrapped in a towel) over the injured area for 20 minutes every 1-2 hours the first day. You can place the ice pack directly over the splint. If a Velcro knee immobilizer was applied, you can open this to apply the ice pack directly to the knee. Continue with ice packs 3-4 times a day for the next two days, then as needed for the relief of pain and swelling. You may use acetaminophen (Tylenol) or ibuprofen (Motrin, Advil) to control pain, unless another pain medicine was prescribed. [NOTE: If you have chronic liver or kidney disease or ever had a stomach ulcer, talk with your doctor before using these medicines.] If you were given a splint, keep it completely dry at all times. Bathe with your splint out of the water, protected with a large plastic bag, rubber-banded at the top end. If a fiberglass splint gets wet, you can dry it with a hair-dryer. If you have a Velcro knee immobilizer, you can remove this to bathe, unless told otherwise. Check with your doctor before returning to sports or full work duties. Follow Up with your doctor, or as advised, within 1-2 weeks for another exam. Further testing may be required to assess the extent of your injury. [NOTE: If X-rays were taken, they will be reviewed by a radiologist. You will be notified of any new findings that may affect your care.] Get Prompt Medical Attention if any of the following occur: Toes or foot becomes swollen, cold, blue, numb or tingly Pain or swelling increases over the knee or calf Warmth or redness appears over the knee or calf Shortness of breath or chest pain Fever over 100.4F (38.0C) Knee Effusion A knee effusion is sometimes calledwater on the knee. The knee joint normally contains less than one ounce of lubricating fluid. Injury or inflammation of the knee joint causes extra fluid to collect there. When this occurs, the knee joint looks swollen and is usually painful. There may be difficulty in fully bending the knee. The most common cause of knee effusion is osteoarthritis due to wear and tear on the joint cartilage. Other causes include injury to the cartilage, inflammatory arthritis (such as gout or rheumatoid arthritis), and infection of the joint. If the cause of your knee effusion is not certain, a needle aspiration may be performed. This procedure removes a sample of joint fluid from the knee for testing. This is done with a local anesthetic. Removing excess fluid may also relieve swelling and pain. Home Care: Limit your activities. Avoid weight-bearing activities as much as possible when your knee is painful and swollen. Keep your leg elevated to reduce pain and swelling. When sleeping, place a pillow under the injured leg. When sitting, support the injured leg so it is level with your waist. This is very important during the first 48 hours. Apply an ice pack (ice cubes in a plastic bag, wrapped in a towel) over the injured area for 20 minutes every 1-2 hours the first day. Continue with ice packs 3-4 times a day for the next two days, then as needed for the relief of pain and swelling. You may use acetaminophen (Tylenol) or ibuprofen (Motrin, Advil) to control pain, unless another pain medicine was prescribed. [NOTE: If you have chronic liver or kidney disease or have ever had a stomach ulcer, talk with your doctor before using these medicines.] Ifcrutches or a walker have been recommended, do not bear full weight on the injured leg until you can do so without pain. Check with your doctor before returning to sports or full work duties. If you were given a Velcro knee brace: You may open the splint to apply ice. You may remove the splint to bathe and sleep, unless told otherwise. Follow Up with your doctor or as advised by our staff. If you are overweight, talk to your doctor about a weight loss program. The excess weight puts extra strain on your knees. Return Promptly or contact your doctor if any of the following occur: Increasing pain, redness or swelling of the knee Fever of 100.4F (38C) or higher, or as directed by your healthcare provider Sprain, Knee A sprain is an injury to the ligaments or capsule that holds a joint together. There are no broken bones. Most sprains take three to six weeks to heal. If the ligament is completely torn (severe sprain), it can take months to recover from. Most knee sprains are treated with a splint, knee immobilizer or elastic wrap for support. Severe sprains may require surgery. Home care The following guidelines will help you care for your injury at home: Stay off the injured leg as much as possible until you can walk on it without pain. If you have a lot of pain with walking, crutches or a walker may be prescribed. (These can be rented or purchased at many pharmacies and surgical or orthopedic supply stores). Follow your doctor's advice regarding when to begin bearing weight on that leg. Keep your leg elevated to reduce pain and swelling. When sleeping, place a pillow under the injured leg. When sitting, support the injured leg so it is level with your waist. This is very important during the first 48 hours. Apply an ice pack (ice cubes in a plastic bag, wrapped in a towel) over the injured area for 20 minutes every 12 hours the first day. You can place the ice pack directly over the splint. If a Velcro knee immobilizer was applied, you can open this to apply the ice pack directly to the knee. Continue with ice packs 34 times a day for the next two days, then as needed for the relief of pain and swelling. You may use acetaminophen or ibuprofen to control pain, unless another pain medicine was prescribed. If you have chronic liver or kidney disease or ever had a stomach ulcer or GI bleeding, talk with your doctor before using these medicines. If you were given a splint, keep it completely dry at all times. Bathe with your splint out of the water, protected with a large plastic bag, rubber-banded at the top end. If a fiberglass splint gets wet, you can dry it with a hair-dryer. If you have a Velcro knee immobilizer, you can remove this to bathe, unless told otherwise. Follow-up care Follow up with your doctor as advised. Any X-rays you had today dont show any broken bones, breaks, or fractures. Sometimes fractures dont show up on the first X-ray. Bruises and sprains can sometimes hurt as much as a fracture. These injuries can take time to heal completely. If your symptoms dont improve or they get worse, talk with your doctor. You may need a repeat X-ray. When to seek medical care Get prompt medical attention if any of the following occur: The plaster cast or splint becomes wet or soft The fiberglass cast or splint remains wet for more than 24 hours Pain or swelling increases Toes become cold, blue, numb or tingly Hydrocodone Bitartrate, Acetaminophen Oral tablet What is this medicine? ACETAMINOPHEN; HYDROCODONE (a set a SHERWIN michael fen; rakan droe KOE done) is a pain reliever. It is used to treat mild to moderate pain. How should I use this medicine? Take this medicine by mouth. Swallow it with a full glass of water. Follow the directions on the prescription label. If the medicine upsets your stomach, take the medicine with food or milk. Do not take more than you are told to take. Talk to your disk sharpener regarding the use of this medicine in children. This medicine is not approved for use in children. What side effects may I notice from receiving this medicine? Side effects that you should report to your doctor or health elderly caregiver as soon as possible: allergic reactions like skin rash, itching or hives, swelling of the face, lips, or tongue breathing problems confusion feeling faint or lightheaded, falls stomach pain yellowing of the eyes or skin Side effects that usually do not require medical attention (report to your doctor or health elderly caregiver if they continue or are bothersome): nausea, vomiting stomach upset What may interact with this medicine? alcohol antihistamines isoniazid medicines for depression, anxiety, or psychotic disturbances medicines for sleep muscle relaxants naltrexone narcotic medicines (opiates) for pain phenobarbital ritonavir tramadol What if I miss a dose? If you miss a dose, take it as soon as you can. If it is almost time for your next dose, take only that dose. Do not take double or extra doses. Where should I keep my medicine? Keep out of the reach of children. This medicine can be abused. Keep your medicine in a safe place to protect it from theft. Do not share this medicine with anyone. Selling or giving away this medicine is dangerous and against the law. Store at room temperature between 15 and 30 degrees C (59 and 86 degrees F). Protect from light. Keep container tightly closed. Throw away any unused medicine after the expiration date. Discard unused medicine and used packaging carefully. Pets and children can be harmed if they find used or lost packages. What should I tell my health care provider before I take this medicine? They need to know if you have any of these conditions: brain tumor Crohn's disease, inflammatory bowel disease, or ulcerative colitis drink more than 3 alcohol-containing drinks per day drug abuse or addiction head injury heart or circulation problems kidney disease or problems going to the bathroom liver disease lung disease, asthma, or breathing problems an unusual or allergic reaction to acetaminophen, hydrocodone, other opioid analgesics, other medicines, foods, dyes, or preservatives or trying to get breast-feeding What should I watch for while using this medicine? Tell your doctor or health elderly caregiver if your pain does not go away, if it gets worse, or if you have new or a different type of pain. You may develop tolerance to the medicine. Tolerance means that you will need a higher dose of the medicine for pain relief. Tolerance is normal and is expected if you take the medicine for a long time. Do not suddenly stop taking your medicine because you may develop a severe reaction. Your body becomes used to the medicine. This does NOT mean you are addicted. Addiction is a behavior related to getting and using a drug for a non-medical reason. If you have pain, you have a medical reason to take pain medicine. Your doctor will tell you how much medicine to take. If your doctor wants you to stop the medicine, the dose will be slowly lowered over time to avoid any side effects. You may get drowsy or dizzy when you first start taking the medicine or change doses. Do not drive, use machinery, or do anything that may be dangerous until you know how the medicine affects you. Stand or sit up slowly. There are different types of narcotic medicines (opiates) for pain. If you take more than one type at the same time, you may have more side effects. Give your health care provider a list of all medicines you use. Your doctor will tell you how much medicine to take. Do not take more medicine than directed. Call emergency for help if you have problems breathing. The medicine will cause constipation. Try to have a bowel movement at least every 2 to 3 days. If you do not have a bowel movement for 3 days, call your doctor or health elderly caregiver. Too much acetaminophen can be very dangerous. Do not take Tylenol (acetaminophen) or medicines that contain acetaminophen with this medicine. Many non-prescription medicines contain acetaminophen. Always read the labels carefully. Ibuprofen Oral tablet What is this medicine? IBUPROFEN (eye BYOO proe fen) is a non-steroidal anti-inflammatory drug (NSAID). It is used for dental pain, fever, headaches or migraines, osteoarthritis, rheumatoid arthritis, or painful monthly periods. It can also relieve minor aches and pains caused by a cold, flu, or sore throat. How should I use this medicine? Take this medicine by mouth with a glass of water. Follow the directions on the prescription label. Take this medicine with food if your stomach gets upset. Try to not lie down for at least 10 minutes after you take the medicine. Take your medicine at regular intervals. Do not take your medicine more often than directed. A special MedGuide will be given to you by the pharmacist with each prescription and refill. Be sure to read this information carefully each time. Talk to your disk sharpener regarding the use of this medicine in children. Special care may be needed. What side effects may I notice from receiving this medicine? Side effects that you should report to your doctor or health elderly caregiver as soon as possible: allergic reactions like skin rash, itching or hives, swelling of the face, lips, or tongue black or bloody stools, blood in the urine or in vomit breathing problems changes in vision chest pain general ill feeling or flu-like symptoms nausea or vomiting redness, blistering, peeling or loosening of the skin, including inside the mouth slurred speech or weakness on one side of the body stomach pain unexplained weight gain or swelling unusually weak or tired yellowing of eyes or skin Side effects that usually do not require medical attention (report to your doctor or health elderly caregiver if they continue or are bothersome): constipation or diarrhea dizziness gas or heartburn stomach upset What may interact with this medicine? Do not take this medicine with any of the following medications: cidofovir ketorolac methotrexate pemetrexed This medicine may also interact with the following medications: alcohol aspirin diuretics lithium other drugs for inflammation like prednisone warfarin What if I miss a dose? If you miss a dose, take it as soon as you can. If it is almost time for your next dose, take only that dose. Do not take double or extra doses. Where should I keep my medicine? Keep out of the reach of children. Store at room temperature between 15 and 30 degrees C (59 and 86 degrees F). Keep container tightly closed. Throw away any unused medicine after the expiration date. What should I tell my health care provider before I take this medicine? They need to know if you have any of these conditions: asthma cigarette smoker drink more than 3 alcohol containing drinks a day heart disease or circulation problems such as heart failure or leg edema (fluid retention) high blood pressure kidney disease liver disease stomach bleeding or ulcers an unusual or allergic reaction to ibuprofen, aspirin, other NSAIDS, other medicines, foods, dyes, or preservatives or trying to get breast-feeding What should I watch for while using this medicine? Tell your doctor or healthcare professional if your symptoms do not start to get better or if they get worse. This medicine does not prevent heart attack or stroke. In fact, this medicine may increase the chance of a heart attack or stroke. The chance may increase with longer use of this medicine and in people who have heart disease. If you take aspirin to prevent heart attack or stroke, talk with your doctor or health elderly caregiver. Do not take other medicines that contain aspirin, ibuprofen, or naproxen with this medicine. Side effects such as stomach upset, nausea, or ulcers may be more likely to occur. Many medicines available without a prescription should not be taken with this medicine. This medicine can cause ulcers and bleeding in the stomach and intestines at any time during treatment. Ulcers and bleeding can happen without warning symptoms and can cause . To reduce your risk, do not smoke cigarettes or drink alcohol while you are taking this medicine. You may get drowsy or dizzy. Do not drive, use machinery, or do anything that needs mental alertness until you know how this medicine affects you. Do not stand or sit up quickly, especially if you are an older patient. This reduces the risk of dizzy or fainting spells. This medicine can cause you to bleed more easily. Try to avoid damage to your teeth and gums when you brush or floss your teeth. You have been given the following additional information: Knee Pain, Meniscus Injury (Possible) Knee Effusion Knee Sprain Hydrocodone Bitartrate, Acetaminophen Oral tablet Ibuprofen Oral tablet (Electronically signed by Celi Enrique A.R.N.P. 07/04/2016 16:01)
== END 2016-07-04 15:33 | disposition home or self-care (01) ==
LOC: ED SRH 13:25
DX: S83.242A Other tear of medial meniscus, current injury, left knee, initial encounter (principal); X58.XXXA Exposure to other specified factors, initial encounter; Y93.01 Activity, walking, marching and hiking; Y92.009 Unspecified place in unspecified non-institutional (private) residence as the place of occurrence of the external cause; I10 Essential (primary) hypertension; Z79.899 Other long term (current) drug therapy; Z87.891 Personal history of nicotine dependence